=== PATIENT | female | born 1945 | race Caucasian/White ===

== ENCOUNTER → 2016-06-18 | Outpatient (CLI) | payer MEDICARE, OTHER ==
--- NOTE | 2016-06-19 10:02 | MM ---
Reason for exam: screening (asymptomatic). Last mammogram was performed 1 year ago. History: Patient is postmenopausal. Benign stereotactic core biopsy of the right breast, August 03, 2001. Benign stereotactic core biopsy of the right breast, August 03, 2001. Benign cyst aspiration of the right breast, September 15, 1997. Benign core biopsy of the right breast. Benign excisional biopsy of the left breast. Physical Findings: A clinical breast exam by your physician is recommended on an annual basis and results should be correlated with mammographic findings. MG 3D Screening Mammo W/Cad Bilateral CC and MLO view(s) were taken. Prior study comparison: June 08, 2015, bilateral MG screening mammo w CAD. June 07, 2014, bilateral MG screening mammo w CAD. The breast tissue is heterogeneously dense. This may lower the sensitivity of mammography. Benign calcifications. No significant changes when compared with prior studies. ASSESSMENT: Benign, BI-RAD 2 RECOMMENDATION: Routine screening mammogram of both breasts in 1 year.
== END | disposition home or self-care (01) ==
LOC: RADMAMWWP 09:40
PROVIDERS: ATTEND Family Medicine
DX: Z12.31 Encounter for screening mammogram for malignant neoplasm of breast (principal)
CPT/HCPCS: 77063; G0202

== ENCOUNTER → 2017-05-15 | Outpatient (CLI) | payer MEDICARE, OTHER ==
[2017-05-15 12:01] LABS: Blood Urea Nitrogen 15 mg/dL (7-17)
== END | disposition home or self-care (01) ==
LOC: LABWHC1 10:56
PROVIDERS: ATTEND Nurse Practitioner Family
DX: H93.12 Tinnitus, left ear (principal); H90.42 Sensorineural hearing loss, unilateral, left ear, with unrestricted hearing on the contralateral side
CPT/HCPCS: 36415; 82565; 84520

== ENCOUNTER → 2017-06-23 | Outpatient (CLI) | payer MEDICARE, OTHER ==
--- NOTE | 2017-06-24 14:29 | MM ---
Reason for exam: screening (asymptomatic). Last mammogram was performed 1 year ago. History: Patient is postmenopausal. Benign stereotactic core biopsy of the right breast, August 03, 2001. Benign stereotactic core biopsy of the right breast, August 03, 2001. Benign cyst aspiration of the right breast, September 15, 1997. Benign core biopsy of the right breast. Benign excisional biopsy of the left breast. Physical Findings: A clinical breast exam by your physician is recommended on an annual basis and results should be correlated with mammographic findings. MG 3D Screening Mammo W/Cad Bilateral CC and MLO view(s) were taken. Prior study comparison: June 18, 2016, bilateral MG 3d screening mammo w/cad. June 08, 2015, bilateral MG screening mammo w CAD. There are scattered fibroglandular densities. Previous mammotome biopsy in the right breast x 2. Nodular asymmetry subareolar right breast on the MLO view is unchanged from 2013. No significant changes when compared with prior studies. ASSESSMENT: Negative, BI-RAD 1 RECOMMENDATION: Routine screening mammogram of both breasts in 1 year.
== END | disposition home or self-care (01) ==
LOC: RADMAMWWP 07:53
PROVIDERS: ATTEND Family Medicine
DX: Z12.31 Encounter for screening mammogram for malignant neoplasm of breast (principal)
CPT/HCPCS: 77063; 77067

== ENCOUNTER → 2017-08-28 | Outpatient (CLI) | payer MEDICARE, OTHER ==
[2017-08-28 09:13] LABS: Blood Urea Nitrogen 14 mg/dL (7-17)
--- NOTE | 2017-08-28 12:28 | CT ---
EXAMINATION TYPE: CT brain wo/w con DATE OF EXAM: 08/28/2017 COMPARISON: Outside MRI brain and IAC May 21, 2017 HISTORY: Abnormal findings on MRI CT DLP: 2361.8 mGycm Automated exposure control for dose reduction was used. CONTRAST: CT scan of the head is performed without and with IV Contrast, patient injected with 100 ml mL of Iso sola 300. FINDINGS: Noncontrast images show no acute intracranial hemorrhage or midline shift. The ventricles and sulci are within normal limits in size for patient's age. Postcontrast images show no suspicious enhancing mass. The globes are intact and the visualized sinuses are clear. Some vascular calcification distal internal carotid arteries bilaterally is present. Corresponding to area of concern on recent MRI the re is 8mm lucent area in high right frontal calvarium, I favor enchondroma or other benign etiology IMPRESSION: As above.
== END | disposition home or self-care (01) ==
LOC: RADCTMAIN 08:22
PROVIDERS: ATTEND Psychiatry & Neurology Neurology
DX: R93.0 Abnormal findings on diagnostic imaging of skull and head, not elsewhere classified (principal); R90.89 Other abnormal findings on diagnostic imaging of central nervous system; Z88.2 Allergy status to sulfonamides
CPT/HCPCS: 82565; 84520; 70470; 36415; Q9967

== ENCOUNTER → 2018-07-07 | Outpatient (CLI) | payer MEDICARE, OTHER ==
--- NOTE | 2018-07-08 12:18 | MM ---
Reason for exam: screening (asymptomatic). Last mammogram was performed 1 year ago. History: Patient is postmenopausal. Benign stereotactic core biopsy of the right breast, August 03, 2001. Benign stereotactic core biopsy of the right breast, August 03, 2001. Benign cyst aspiration of the right breast, September 15, 1997. Benign core biopsy of the right breast. Benign excisional biopsy of the left breast. Physical Findings: A clinical breast exam by your physician is recommended on an annual basis and results should be correlated with mammographic findings. MG 3D Screening Mammo W/Cad Bilateral CC and MLO view(s) were taken. Prior study comparison: June 23, 2017, bilateral MG 3d screening mammo w/cad. June 18, 2016, bilateral MG 3d screening mammo w/cad. There are scattered fibroglandular densities. There is a right anterior depth central, slightly medial 6mm mass. Benign appearing bilateral calcifications. No suspicious abnormality on the left. Right biopsy marker. ASSESSMENT: Incomplete: need additional imaging evaluation, BI-RAD 0 RECOMMENDATION: Special view mammogram of the right breast. If lesion persists on supplemental views, image directed ultrasound is recommended. [facility] will attempt to contact patient to return for supplemental views and ultrasound if indicated.
== END | disposition home or self-care (01) ==
LOC: RADMAMWWP 09:26
PROVIDERS: ATTEND Family Medicine
DX: Z12.31 Encounter for screening mammogram for malignant neoplasm of breast (principal)
CPT/HCPCS: 77063; 77067

== ENCOUNTER → 2018-07-13 | Outpatient (CLI) | payer MEDICARE, OTHER ==
--- NOTE | 2018-07-13 11:17 | MM ---
Reason for exam: additional evaluation requested from abnormal screening. Last mammogram was performed less than 1 month ago. History: Patient is postmenopausal. Benign stereotactic core biopsy of the right breast, August 03, 2001. Benign stereotactic core biopsy of the right breast, August 03, 2001. Benign cyst aspiration of the right breast, September 15, 1997. Benign core biopsy of the right breast. Benign excisional biopsy of the left breast. Physical Findings: Nurse did not find any significant physical abnormalities on exam. MG 3D Work Up W/Cad RT Spot compression CC, spot compression MLO, spot compression LM, and LM view(s) were taken of the right breast. Prior study comparison: July 07, 2018, bilateral MG 3d screening mammo w/cad. June 23, 2017, bilateral MG 3d screening mammo w/cad. The breast tissue is heterogeneously dense. This may lower the sensitivity of mammography. Finding: There is a persistent equal density (isodense), indistinct round mass located 2 cm from the nipple in the subareolar position of the right breast. These results were verbally communicated with the patient and result sheet given to the patient on 07/13/18. ASSESSMENT: Incomplete: need additional imaging evaluation, BI-RAD 0 RECOMMENDATION: Ultrasound of the right breast.
--- NOTE | 2018-07-13 11:18 | USB ---
Reason for exam: additional evaluation requested from abnormal screening. History: Patient is postmenopausal. Benign stereotactic core biopsy of the right breast, August 03, 2001. Benign stereotactic core biopsy of the right breast, August 03, 2001. Benign cyst aspiration of the right breast, September 15, 1997. Benign core biopsy of the right breast. Benign excisional biopsy of the left breast. US Breast Workup Limited RT Right limited breast ultrasound including focal area of concern, retroareolar and axilla demonstrates a 0.4 x 0.4 x 0.4cm oval, cystic lesion at the posterior nipple. These results were verbally communicated with the patient and result sheet given to the patient on 07/13/18. ASSESSMENT: Probably benign, BI-RAD 3 RECOMMENDATION: Ultrasound of the right breast in 6 months.
== END | disposition home or self-care (01) ==
LOC: RADMAMWWP 08:56
PROVIDERS: ATTEND Family Medicine
DX: R92.8 Other abnormal and inconclusive findings on diagnostic imaging of breast (principal)
CPT/HCPCS: 77065; 76642; G0279; 77061

== ENCOUNTER → 2018-12-06 | Outpatient (CLI) | payer MEDICARE, OTHER ==
--- NOTE | 2018-12-07 18:10 | BD ---
EXAMINATION TYPE: Axial Bone Density DATE OF EXAM: 12/06/2018 COMPARISON: NONE CLINICAL HISTORY: Height: 5 FT 3 1/2 IN Weight: 152 FRAX RISK QUESTIONS: History of Fracture in Adulthood: YES RISK FACTORS HISTORY OF: Surgery to Spine/Hip(right/left)/Wrist (right/left): LEFT WRIST GANGLION CYST REMOVED Postmenopausal woman: MID 40'S Take estrogen and/or progesterone medications: UNSURE HOW LONG SHE TOOK POSSIBLY A FEW YEARS Lost more than 2 inches in height since high school: YES MEDICATIONS: Additional Medications: NONE Additional History: EXAM MEASUREMENTS: Bone mineral densitometry was performed using the [employer] System. Bone mineral density as measured about the Lumbar spine is: ----- L1-L4(G/cm2): 1.290 T Score Values are as follows: ----- L2: 0.4 ----- L3: 0.6 ----- L4: 1.0 ----- L1-L4: 0.9 BASELINE Bone mineral density about the R hip (g/cm2): 0.917 Bone mineral density about the L hip (g/cm2): 0.865 T Score values are as follows: -----R Neck: -0.9 -----L Neck: -1.2 -----R Total: 0.1 -----L Total: -0.5 BASELINE IMPRESSION: Osteopenia (T Score between -2.5 and -1). There is slightly increased risk of fracture and the patient may be considered for treatment. Re-Screen 2-5 years. NOTE: T-SCORE=SD OF THE YOUNG ADULT MEAN.
== END | disposition home or self-care (01) ==
LOC: RADBDWWP 15:25
PROVIDERS: ATTEND Family Medicine
DX: M85.80 Other specified disorders of bone density and structure, unspecified site (principal); Z78.0 Asymptomatic menopausal state
CPT/HCPCS: 77080